=== PATIENT | male | born 1985 | race Caucasian/White ===

== ENCOUNTER 2016-11-30 20:04 | Emergency (ER) | payer OTHER ==
--- OUTSIDE RECORDS SUMMARY | 2016-11-30 21:12 | XMS REPORT | Continuity of Care Document ---
:1985 Author Organization [facility] ([facility]) Address [place] [address] Phone [phone] Care Team Providers Name Role Phone Mike Mobley Primary Care Provider [phone] Source Comments This disclosure is being made pursuant to the Care Everywhere program, applicable federal and state laws, and may not contain all informaitonavailable regarding this patient.[facility] ([facility]) Active Allergies and Adverse Reactions Allergen Noted Date Severity Reactions Comments Quetiapine 02/25/2014 OTHER Gets angry Tramadol 02/25/2014 Seizure Current Medications Prescription Sig. Disp. Refills Start Date End Date Status levETIRAcetam 1,000 mg Take 500 mg by Active tablet mouth 2 times daily. ALPRAZolam 2 mg tablet Take 2 mg by mouth Active 3 times daily as needed. ibuprofen 800 mg tablet Take 1 Tab by 60 Tab 0 03/02/2014 Active mouth every 8 hours as needed. Indications: PAIN tiZANidine 4 mg tablet Take 1 Tab by 30 Tab 0 03/04/2014 Active mouth 3 times daily as needed. Indications: MUSCLE SPASM tiZANidine 2 mg tablet Take 1 Tab by 30 Tab 0 05/22/2014 Active mouth 3 times daily as needed. Indications: MUSCLE SPASM HYDROcodone-acetaminophen Take 1-2 Tabs by 30 Tab 0 05/22/2014 Active 5-325 mg per tablet mouth every 6 hours as needed. Indications: PAIN ibuprofen 800 mg tablet Take 1 Tab by 60 Tab 0 05/22/2014 Active mouth every 8 hours as needed. 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
[2016-11-30 21:16] LABS: Hematocrit 42.9 % (42.0-52.0); Hemoglobin 14.7 gm/dL (13.5-18.0); Mean Cell Volume 89.2 fl (78-100); Mean Corpuscular Hemoglobin 30.6 pg (27-31); Mean Corpuscular Hgb Conc 34.3 g/dl (32-36); Mean Platelet Volume 8.3 fl (6.0-9.5); Neutrophil % 76.3 % (42-75.0); Platelet Count 267 K/mm3 (150-450); Red Blood Count 4.81 M/mm3 (4.7-6.0); Red Cell Distribution Width 13.1 % (11.5-14.0); White Blood Count 11.8 K/mm3 (4.0-10.5)
--- NOTE | 2016-11-30 21:16 | ERNOTE ---
Neuro HPI ER Record Presenting Symptoms: other Time Seen by Provider: 11/30/16 20:56 Source: patient Exam Limitations: no limitations Immunizations: IMMUNIZATION HX Immunizations Up to Date Yes History of Influenza Vaccine Yes Hx Pneumococcal Vaccination No Allergies/Adverse Reactions: Allergies Allergy/AdvReac Type Severity Reaction Status Date / Time oxycodone HCl [From Percocet] Allergy Mild Itching Verified 11/30/16 20:19 quetiapine fumarate AdvReac violence Verified 11/30/16 20:19 [From Seroquel] tramadol AdvReac seizures Verified 11/30/16 20:19 Home Medications: HOME MEDICATIONS levETIRAcetam [Keppra] 500 mg PO BID 08/07/15 [Last Taken 11/30/16 08:00] HYDROcodone/ACETAMINOPHEN [[place] 5-325] 1 tab PO Q4H PRN #30 tab 09/08/15 [Last Taken 11/30/16 12:00] ALPRAZolam [Xanax] 2 mg PO BID 04/16/16 [Last Taken 11/30/16 08:00] - History of Present Illness Narrative: Pt was sitting in a chair and then "woke up" with EMS and LE around him. Friends told him he had a seizure. Onset: sudden onset Severity: moderate - Character of Deficits Baseline Cognition: Present: alert, oriented x 4 Baseline Gait: Present: walks w/o assistance Associated Symptoms: Reports: none Review of Systems - Review of Systems Constitutional: Absent: recent illness EYE: Present: no symptoms reported ENT: Present: other - denies any oral trauma Respiratory: Present: no symptoms reported Cardiology: Present: no symptoms reported Gastrointestinal/Abdominal: Present: no symptoms reported, other - no loss of bowel or bladder control Genitourinary: Present: no symptoms reported Musculoskeletal: Present: neck pain - mild muscular soreness of left cervical paraspinal muscles Skin: Present: no symptoms reported Neurological: Absent: headache, weakness, numbness, tingling Endocrine: Present: no symptoms reported Hematologic/Lymphatic: Present: no symptoms reported Psych: Present: no symptoms reported - Patient's Past Medical History Patient History - Medical: Anxiety, Depression, Obesity, Other, Seizures Patient History - Cardiac/Respiratory: No pertinent hx Patient History - Cancer: No Hx of Cancer Patient History - Surgical Procedures: Cholecystectomy Patient History - Other: None - Family History Mother Family History - Medical: Hypothyroidism Family History - Cardiac/Respiratory: Coronary Heart Disease, Hypertension, Myocardial Infarction Father Family History - Medical: History Unknown Family History - Cardiac/Respiratory: History Unknown Brother Family History - Cardiac/Respiratory: No pertinent hx Sister Family History - Medical: Anxiety, Hypothyroidism Family History - Cardiac/Respiratory: No pertinent hx - Social History Living Situations: home Abuse History: No History of abuse Psych History: Current tx/ever been on anti-depressants or anti-anxiety meds, Hx of Anxiety, Hx of Depression Smoking Status: Former smoker Have you smoked in the past 12 months: Yes Do you dip or chew tobacco: No Alcohol Use: occasionally Drug Use: marijuana - Immunizations Immunizations Up to Date: Yes Hx Pneumococcal Vaccination: No History of Influenza Vaccine: Yes Physical Exam - Physical Exam General Appearance: Present: wd/wn, alert, no apparent distress Eye Exam: Normal inspection: bilateral, PERRL: bilateral, EOMI: bilateral Ears, Nose, Throat: Present: normal ENT inspection - no oral trauma Neck: Present: normal inspection, tender lateral - left paraspinal muscles Respiratory: Present: no respiratory distress, normal breath sounds, chest nontender Cardiovascular/Chest: Present: regular rate, rhythm Gastrointestinal/Abdominal: Present: nontender, nondistended, soft Back Exam: Present: normal inspection, normal range of motion Extremity Exam: Present: normal inspection, non-tender Neurological Exam: Present: alert, oriented, normal mood/affect, no motor/ sensory deficits Skin Exam: Present: normal color, warm/dry Lymphatic Exam: Present: no adenopathy Na Coma Scale - Assess Eye Opening: Spontaneous Motor: Obeys Commands Verbal: Oriented - Total Coma Scale Total: 15 ED Progress - Results and Orders Patient's Lab Results:: I have reviewed the patient's lab results. - Vital Signs Patient's Vital Signs:: I have reviewed the patient's vital signs. Vital Signs: Vital Signs 11/30/16 11/30/16 20:07 20:43 Temperature 36.4 C L Pulse Rate 89 75 Respiratory 26 H 23 H Rate Blood Pressure 159/81 159/99 O2 Sat by Pulse 93 95 Oximetry - Progress/Reassessment Chief Complaint: Seizure Activity Progress:: Improved Departure Clinical Impression: Seizure disorder - Departure Disposition: Home Follow Up Needed Condition: Good Instructions: Epilepsy, [id number] Additional Instructions: See your neurologist if you have any other episodes. make sure to take your medications everyday
[2016-11-30 21:29] LABS: Albumin * 4.6 gm/dl (3.4-5.0); Anion Gap 15.4 mmol/L (6.8-13.8); Bilirubin, Total 0.6 mg/dL (0.0-1.1); Ca. Corrected For Albumin 8.3 mg/dL (8.4-10.2); Calcium * 9.1 mg/dL (7.9-10.9); Carbon Dioxide 26.1 mmol/L (24-32.6); Potassium 3.5 mmol/L (3.4-4.6); Total Protein 7.9 gm/dL (6.2-8.2)
[2016-11-30 22:01] VITALS: BP 182/111
== END 2016-11-30 22:36 | disposition home or self-care (01) ==
LOC: ER 20:04
DX: G40.909 Epilepsy, unspecified, not intractable, without status epilepticus (principal); Z87.891 Personal history of nicotine dependence; F41.9 Anxiety disorder, unspecified

== ENCOUNTER 2018-08-14 20:42 | Observation (INO) | payer MEDICAID, OTHER ==
[2018-08-14] MEDS ORDERED: NORMAL SALINE 1,000 ML IV ONE ×2 (20:47→23:57)
[2018-08-14] MEDS ORDERED: LORazepam 2 MG/ML DISP.SYRIN ONE (20:47)
[2018-08-14] MEDS: LORazepam 2 MG/ML DISP.SYRIN IV ONE ×2 (20:54→21:13)
[2018-08-14 21:01] LABS: Hematocrit 43.7 % (42.0-52.0); Hemoglobin 14.8 gm/dL (13.5-18.0); Mean Cell Volume 90.7 fl (78-100); Mean Corpuscular Hemoglobin 30.7 pg (27-31); Mean Corpuscular Hgb Conc 33.9 g/dl (32-36); Mean Platelet Volume 8.9 fl (8-11.3); Platelet Count 390 K/mm3 (150-450); Red Blood Count 4.82 M/mm3 (4.7-6.0); Red Cell Distribution Width 13.1 % (11.5-14.0); White Blood Count 15.6 K/mm3 (4.0-10.5)
[2018-08-14 21:08] LABS: Total Cells Counted 100
[2018-08-14 21:14] LABS: ALT 36 U/L (19-67); AST 30 U/L (0-48); Albumin * 4.6 gm/dl (3.4-5.0); Alkaline Phosphatase * 83 U/L (50-170); Anion Gap 21.6 mmol/L (6.8-13.8); BUN/Creatinine Ratio 8.4 (9.0-21.6); Bilirubin, Total 0.5 mg/dL (0.0-1.1); Blood Urea Nitrogen 11 mg/dL (6-23); Ca. Corrected For Albumin 9.2 mg/dL (8.4-10.2); Carbon Dioxide 23.9 mmol/L (24-32.6); Chloride 101 mmol/L (97-106); Glucose * 124 mg/dL (70-110); Potassium 3.5 mmol/L (3.4-4.6); Salicylate Less than 2.8 mg/dL (2.8-20.0); Sodium 143 mmol/L (132-142); Total Protein 7.7 gm/dL (6.2-8.2)
[2018-08-14] MEDS ORDERED: ZIPRASIDONE MESYLATE 20 MG VIAL IM ONE (21:17)
[2018-08-14] MEDS ORDERED: WATER FOR INJECTION,STERILE 20 ML VIAL ONE (21:21)
[2018-08-14 21:49] LABS: Lymphocyte 38 % (20-51); Monocyte 6 % (0-9); Neutrophil 56 % (42-75); Neutrophil # 8.7 K/mm3 (1.3-6.0); Platelet Estimate Normal (NORMAL); RBC Morphology Normal (NORMAL)
[2018-08-14 21:59] LABS: Urine Bilirubin Negative (NEGATIVE); Urine Blood Negative /ul (NEGATIVE); Urine Ketone Negative (NEGATIVE); Urine Nitrite Negative (NEGATIVE); Urine Protein Negative (NEGATIVE); Urine Specific Gravity 1.015 SP.GR. (1.005-1.030); Urine Urobilinogen Normal (NORMAL); Urine pH 7.5 pH (5.0-7.0)
[2018-08-14 22:14] LABS: Cocaine Ur Negative (NEGATIVE); Urine Barbiturate Negative (NEGATIVE); Urine Opiates Negative (NEGATIVE); Urine PCP Negative (NEGATIVE)
[2018-08-14 22:19] LABS: Urine Appearance Clear (CLEAR); Urine Bacteria None Seen; Urine Color Yellow; Urine RBC None Seen /hpf (0-5); Urine WBC None Seen /hpf (0-5)
[2018-08-14 22:20] LABS: Urine Benzodiazepines Positive (NEGATIVE); Urine THC Positive (NEGATIVE)
--- NOTE | 2018-08-14 23:41 | ERNOTE ---
Medical Problem HPI - Narrative Date of Service: 08/14/18 - General Chief Complaint: Drug Overdose Time Seen by Provider: 08/14/18 20:45 Source: patient Exam Limitations: intoxication - Immun/Allergies/Home Medications Immunizations: IMMUNIZATION HX Immunizations Up to Date Yes History of Influenza Vaccine Yes Hx Pneumococcal Vaccination No Allergies/Adverse Reactions: Allergies oxycodone HCl [From Percocet] Allergy (Mild, Verified 04/12/18 17:14) Itching quetiapine fumarate [From Seroquel] Adverse Reaction (Verified 04/12/18 17:14) violence tramadol Adverse Reaction (Verified 04/12/18 17:14) seizures Home Medications: HOME MEDICATIONS HYDROcodone/ACETAMINOPHEN [[place] 5-325] 1 tab PO Q4H PRN #30 tab 09/08/15 [Last Taken 11/30/16 12:00] alprazolam 2 mg tablet 2 mg PO QID PRN #120 tab 07/15/18 [Last Taken Unknown] levetiracetam 1,000 mg tablet 500 mg PO BID #60 tab 07/15/18 [Last Taken Unknown] - History of Present History Narrative: patient present to ed with compaliant of meth overdose, patient combative and unconsoable Timing: constant, getting worse Severity: severe Modifying Factors - (Improves): Present: other - nothing Modifying Factors - (Worsens): Present: other - nothing Review of Systems - Review of Systems Constitutional: Present: See HPI EYE: Present: no symptoms reported ENT: Present: no symptoms reported Respiratory: Present: no symptoms reported Cardiology: Present: no symptoms reported Gastrointestinal/Abdominal: Present: no symptoms reported Genitourinary: Present: no symptoms reported Musculoskeletal: Present: no symptoms reported Skin: Present: no symptoms reported Neurological: Present: no symptoms reported Endocrine: Present: no symptoms reported Hematologic/Lymphatic: Present: no symptoms reported Psych: Present: See HPI, anxiety, emotional problems, other - patient admits to overdose of methamphetamine Medical History (Last Updated 04/12/18 @ 17:32 by Seema Stephens RN) Generalized anxiety disorder Major depressive disorder, recurrent episode Seizure disorder Polysubstance abuse Family History: Family History (Last Updated 04/12/18 @ 17:38 by Seema Stephens RN) Brother Mental retardation Sister Dyslexia Mother Heart disease Hypertension Social History: Preferred Language Sinhala Smoking Status Current every day smoker Abuse History No History of abuse Psych History Currently on Meds,Hx of Anxiety,Hx of Depression Drug Use meth (Last Updated 04/12/18 @ 17:46 by Seema Stephens RN) No Social History Section defined Physical Exam - Physical Exam General Appearance: Present: mild distress, anxious, other - patient very anxious and uncunsoable Head Exam: Present: normal inspection, no evidence of injury Eye Exam: Normal inspection: bilateral, PERRL: bilateral, EOMI: bilateral Ears, Nose, Throat: Present: normal ENT inspection, normal pharynx Neck: Present: normal inspection, nontender Respiratory: Present: no respiratory distress, normal breath sounds, no accessory muscle use, chest nontender, lungs clear Cardiovascular/Chest: Present: regular rate, rhythm, no murmur, normal peripheral pulses Gastrointestinal/Abdominal: Present: normal bowel sounds, nontender, nondistended, soft, no organomegaly Back Exam: Present: normal inspection, normal range of motion, no CVA tenderness, no vertebral tenderness Extremity Exam: Present: normal inspection, normal range of motion, no edema Neurological Exam: Present: alert, other - patient agitated Skin Exam: Present: normal color, warm/dry Lymphatic Exam: Present: no adenopathy Progress - Date and Time Seen: Date and Time: 08/14/18 23:38 patient improved sleeping at present ,discussed conditiion with family recommend admission , case discussed with dr nish ervin, to admmit to ccu - Results and Orders Patient's Lab Results:: I have reviewed the patient's lab results. - Vital Signs Patient's Vital Signs:: I have reviewed the patient's vital signs. Vital Signs: Vital Signs 08/14/18 20:49 08/14/18 21:00 08/14/18 21:06 Temperature 36.6 C Pulse Rate 128 H 113 H 101 H Respiratory Rate 38 H 32 H 32 H Blood Pressure 135/98 H 135/98 H 135/65 O2 Sat by Pulse Oximetry 92 L 99 96 08/14/18 21:08 08/14/18 21:15 08/14/18 21:27 Temperature 37.0 C Pulse Rate 104 H 106 H Respiratory Rate 27 H Blood Pressure 136/66 O2 Sat by Pulse Oximetry 99 08/14/18 21:47 Temperature Pulse Rate 102 H Respiratory Rate 18 Blood Pressure 129/79 O2 Sat by Pulse Oximetry 98 - EKG EKG: supraventricular tachycardia EKG read: Interp. by me - Progress/Reassessment Chief Complaint: Drug Overdose Progress:: Improved - Transfer of Care Expected Disposition: Admit Plan - Plan Plan: to be admitted Departure Clinical Impression: Overdose by amphetamine - Departure Disposition: Short Term Hospital Inpatient Condition: Serious
[2018-08-15 06:42] VITALS: BP 157/80
--- NOTE | 2018-08-15 17:40 | HP ---
Chief Complaint - Chief Complaint Date of Service: 08/15/18 Time of Service: 17:38 Chief Complaint: meth overdose History of Present Illness: I was not able to see and examine the patient as he went home AMA (against medical advice ). Medical History (Last Reviewed 08/15/18 @ 01:01 by Yesica Stephen RN) Generalized anxiety disorder Major depressive disorder, recurrent episode Seizure disorder Polysubstance abuse Family History: Family History (Last Reviewed 08/15/18 @ 01:01 by Yesica Stephen RN) Brother Mental retardation Sister Dyslexia Mother Heart disease Hypertension Social History: Patient Lives/Resources Home Utilized Preferred Language Pashto Smoking Status Current some day smoker Have you smoked in the past 12 Yes months Abuse History No History of abuse Psych History Currently on Meds,Hx of Anxiety,Hx of Depression Drug Use meth (Last Updated 04/12/18 @ 17:46 by Seema Stephens RN) No Social History Section defined Immunizations: IMMUNIZATION HX Immunizations Up to Date Yes History of Influenza Vaccine Yes Hx Pneumococcal Vaccination No Allergies/Adverse Reactions: Allergies Allergy/AdvReac Type Severity Reaction Status Date / Time oxycodone HCl [From Percocet] Allergy Mild Itching Verified 08/15/18 01:02 quetiapine fumarate AdvReac violence Verified 08/15/18 01:02 [From Seroquel] tramadol AdvReac seizures Verified 08/15/18 01:02 Home Medications: HOME MEDICATIONS HYDROcodone/ACETAMINOPHEN [[place] 5-325] 1 tab PO Q4H PRN #30 tab 09/08/15 [Last Taken 11/30/16 12:00] alprazolam 2 mg tablet 2 mg PO QID PRN #120 tab 07/15/18 [Last Taken Unknown] levetiracetam 1,000 mg tablet 500 mg PO BID #60 tab 07/15/18 [Last Taken Unknown] Exam - Exam Vital Signs: Vital Signs - Last Taken Temp 36.3 C 08/15/18 06:43 Pulse 74 08/15/18 07:25 Resp 18 08/15/18 07:25 BP 157/80 H 08/15/18 06:43 Pulse Ox 100 08/15/18 06:43 Diagnostic Studies: Abnormal Lab Results 08/14/18 08/14/18 08/14/18 Range/Units 21:00 21:00 21:52 WBC 15.6 H (4.0-10.5) K/mm3 Neutrophils # (Manual) 8.7 H (1.3-6.0) K/mm3 Lymphocytes # (Manual) 5.9 H (1.5-3.5) k/mm3 Sodium 143 H (132-142) mmol/L Plasma Sodium 143 H (130-142) mmol/L Carbon Dioxide 23.9 L (24-32.6) mmol/L Anion Gap 21.6 H (6.8-13.8) mmol/L BUN/Creatinine Ratio 8.4 L (9.0-21.6) Random Glucose 124 H (70-110) mg/dL Salicylates Less than 2.8 L (2.8-20.0) mg/dL Acetaminophen Less than 0.2 L (10.0-30.0) mcg/mL Urine Amphetamine Positive H (NEGATIVE) U Benzodiazepines Scrn Positive H (NEGATIVE) Urine Marijuana (THC) Positive H (NEGATIVE) Laboratory Results WBC 15.6 K/mm3 (4.0-10.5) H 08/14/18 21:00 RBC 4.82 M/mm3 (4.7-6.0) 08/14/18 21:00 Hgb 14.8 gm/dL (13.5-18.0) 08/14/18 21:00 Hct 43.7 % (42.0-52.0) 08/14/18 21:00 MCV 90.7 fl (78-100) 08/14/18 21:00 MCH 30.7 pg (27-31) 08/14/18 21:00 MCHC 33.9 g/dl (32-36) 08/14/18 21:00 RDW 13.1 % (11.5-14.0) 08/14/18 21:00 Plt Count 390 K/mm3 (150-450) 08/14/18 21:00 MPV 8.9 fl (8-11.3) 08/14/18 21:00 Neutrophils % (Manual) 56 % (42-75) 08/14/18 21:00 Lymphocytes % (Manual) 38 % (20-51) 08/14/18 21:00 Monocytes % (Manual) 6 % (0-9) 08/14/18 21:00 Neutrophils # (Manual) 8.7 K/mm3 (1.3-6.0) H 08/14/18 21:00 Lymphocytes # (Manual) 5.9 k/mm3 (1.5-3.5) H 08/14/18 21:00 Monocytes # (Manual) 0.9 k/mm3 (0.0-1.0) 08/14/18 21:00 Platelet Estimate Normal (NORMAL) 08/14/18 21:00 RBC Morphology Normal (NORMAL) 08/14/18 21:00 Sodium 143 mmol/L (132-142) H 08/14/18 21:00 Plasma Sodium 143 mmol/L (130-142) H 08/14/18 21:00 Potassium 3.5 mmol/L (3.4-4.6) 08/14/18 21:00 Chloride 101 mmol/L (97-106) 08/14/18 21:00 Carbon Dioxide 23.9 mmol/L (24-32.6) L 08/14/18 21:00 Anion Gap 21.6 mmol/L (6.8-13.8) H 08/14/18 21:00 BUN 11 mg/dL (6-23) 08/14/18 21:00 Creatinine 1.31 mg/dL (0.4-1.4) 08/14/18 21:00 Est GFR (Non-Af Amer) 67 mL/min (60-130) D 08/14/18 21:00 BUN/Creatinine Ratio 8.4 (9.0-21.6) L 08/14/18 21:00 Random Glucose 124 mg/dL (70-110) H 08/14/18 21:00 Calcium 10.0 mg/dL (7.9-10.9) 08/14/18 21:00 Calcium Adj for Albumin 9.2 mg/dL (8.4-10.2) 08/14/18 21:00 Total Bilirubin 0.5 mg/dL (0.0-1.1) 08/14/18 21:00 AST 30 U/L (0-48) 08/14/18 21:00 ALT 36 U/L (19-67) 08/14/18 21:00 Alkaline Phosphatase 83 U/L (50-170) 08/14/18 21:00 Total Protein 7.7 gm/dL (6.2-8.2) 08/14/18 21:00 Albumin 4.6 gm/dl (3.4-5.0) 08/14/18 21:00 Urine Color Yellow 08/14/18 21:52 Urine Appearance Clear (CLEAR) 08/14/18 21:52 Urine pH 7.5 pH (5.0-7.0) 08/14/18 21:52 Ur Specific [place] 1.015 SP.GR. (1.005-1.030) 08/14/18 21:52 Urine Protein Negative mg/dL (NEGATIVE) 08/14/18 21:52 Urine Glucose (UA) Negative mg/dL (NEGATIVE) 08/14/18 21:52 Urine Ketones Negative mg/dL (NEGATIVE) 08/14/18 21:52 Urine Blood Negative /ul (NEGATIVE) 08/14/18 21:52 Urine Nitrate Negative (NEGATIVE) 08/14/18 21:52 Urine Bilirubin Negative mg/dl (NEGATIVE) 08/14/18 21:52 Urine Urobilinogen Normal EU/dl (NORMAL) 08/14/18 21:52 Ur Leukocyte Esterase Negative /ul (NEGATIVE) 08/14/18 21:52 Urine RBC None seen /hpf (0-5) 08/14/18 21:52 Urine WBC None seen /hpf (0-5) 08/14/18 21:52 Ur Epithelial Cells None seen /hpf (0-5) 08/14/18 21:52 Urine Bacteria None seen (NONE) 08/14/18 21:52 Urine Culture Comments No culture indicated 08/14/18 21:52 Salicylates Less than 2.8 mg/dL (2.8-20.0) L 08/14/18 21:00 Urine Opiates Screen Negative (NEGATIVE) 08/14/18 21:52 Acetaminophen Less than 0.2 mcg/mL (10.0-30.0) L 08/14/18 21:00 Barbiturate Screen Negative (NEGATIVE) 08/14/18 21:52 Ur Phencyclidine Scrn Negative (NEGATIVE) 08/14/18 21:52 Urine Amphetamine Positive (NEGATIVE) H 08/14/18 21:52 U Benzodiazepines Scrn Positive (NEGATIVE) H 08/14/18 21:52 Urine Cocaine Screen Negative (NEGATIVE) 08/14/18 21:52 Urine Marijuana (THC) Positive (NEGATIVE) H 08/14/18 21:52 Ethyl Alcohol Less than 3.0 mg/dL (0.0-10.0) 08/14/18 21:00
--- NOTE | 2018-08-17 09:16 | DS ---
Description of Stay: The patient left against medical advice ( AMA) without being seen. Procedures Performed: none Results and Findings: Lab Pending Results 08/14/18 21:00: WBC 15.6 H, RBC 4.82, Hgb 14.8, Hct 43.7, MCV 90.7, MCH 30.7, MCHC 33.9, RDW 13.1, Plt Count 390, MPV 8.9, Neutrophils % (Manual) 56, Lymphocytes % (Manual) 38, Monocytes % (Manual) 6, Neutrophils # (Manual) 8.7 H, Lymphocytes # (Manual) 5.9 H, Monocytes # (Manual) 0.9, Platelet Estimate Normal, RBC Morphology Normal 08/14/18 21:00: Sodium 143 H, Plasma Sodium 143 H, Potassium 3.5, Chloride 101, Carbon Dioxide 23.9 L, Anion Gap 21.6 H, BUN 11, Creatinine 1.31, Est GFR (Non- Af Amer) 67 D, BUN/Creatinine Ratio 8.4 L, Random Glucose 124 H, Calcium 10.0, Calcium Adj for Albumin 9.2, Total Bilirubin 0.5, AST 30, ALT 36, Alkaline Phosphatase 83, Total Protein 7.7, Albumin 4.6, Salicylates Less than 2.8 L, Acetaminophen Less than 0.2 L, Ethyl Alcohol Less than 3.0 08/14/18 21:52: Urine Color Yellow, Urine Appearance Clear, Urine pH 7.5, Ur Specific [place] 1.015, Urine Protein Negative, Urine Glucose (UA) Negative, Urine Ketones Negative, Urine Blood Negative, Urine Nitrate Negative, Urine Bilirubin Negative, Urine Urobilinogen Normal, Ur Leukocyte Esterase Negative, Urine RBC None seen, Urine WBC None seen, Ur Epithelial Cells None seen, Urine Bacteria None seen, Urine Culture Comments No culture indicated 08/14/18 21:52: Urine Opiates Screen Negative, Barbiturate Screen Negative, Ur Phencyclidine Scrn Negative, Urine Amphetamine Positive H, U Benzodiazepines Scrn Positive H, Urine Cocaine Screen Negative, Urine Marijuana (THC) Positive H Disposition: Against medical advice Condition: Stable Complete Home Medications List: Complete Home Medication List: HYDROcodone/ACETAMINOPHEN [[place] 5-325] 1 tab PO Q4H PRN #30 tab 09/08/15 alprazolam 2 mg tablet 2 mg PO QID PRN #120 tab 07/15/18 levetiracetam 1,000 mg tablet 500 mg PO BID #60 tab 07/15/18
== END 2018-08-15 08:00 | disposition left against medical advice (07) ==
LOC: ER 20:42 → INTOOBSV 23:34 → SCU 23:34
PROVIDERS: ADMIT Internal Medicine; ATTEND Internal Medicine
DX: T50.901A Poisoning by unspecified drugs, medicaments and biological substances, accidental (unintentional), initial encounter
CPT/HCPCS: 36415; 80053; 80307; 80320; 80329; 81001; 85025; 93005; 94760; 96361; 96372; 96374; 96376; 99285; G0378; G0479; G0480; G0481